=== PATIENT | male | born 1970 | race Caucasian/White ===

== ENCOUNTER 2022-02-05 19:19 | Inpatient (IN) | payer BC, MEDICAID ==
[~2022-02-05] VITALS: Ht 175.3 cm; Wt 74.5 kg
[2022-02-05] MEDS ORDERED: piperacillin/tazo 3.375gm/50ml 50 ML IV ONE (23:40)
[2022-02-05] MEDS ORDERED: ondansetron 4mg rapidly disintigrating tab PO ONE (23:40)
[2022-02-05] MEDS ORDERED: HYDROcodone/acetaminophen 10/325mg tab PO ONE (23:40)
[2022-02-05] MEDS ORDERED: iohexol 300mg/ml 100ml inj. ONE (23:54)
[2022-02-06] VITALS (19 sets, daily range): BP systolic 100–131; BP diastolic 57–84
[2022-02-06 00:35] LABS: BASOPHILS # (AUTO) 0.1 X10'3 (0-0.2); BASOPHILS % (AUTO) 0.4 % (0-1); EOSINOPHILS # (AUTO) 0.1 X10'3 (0-0.9); EOSINOPHILS % (AUTO) 0.6 % (0-6); HEMATOCRIT 40.6 % (42.0-52.0); HEMOGLOBIN 13.8 g/dl (14.0-17.9); LYMPHOCYTES # (AUTO) 1.8 X10'3 (1.1-4.8); LYMPHOCYTES % (AUTO) 11.5 % (21-51); MEAN CORPUSCULAR HEMOGLOBIN 30.2 PG (27.0-31.0); MEAN CORPUSCULAR HGB CONC 34.1 g/dL (33.0-36.5); MEAN CORPUSCULAR VOLUME 88.7 FL (78-98); MEAN PLATELET VOLUME 6.6 FL (7.4-10.4); MONOCYTES # (AUTO) 1.9 X10'3 (0-0.9); MONOCYTES % (AUTO) 11.9 % (2-12); NEUTROPHILS # (AUTO) 11.9 X10'3 (1.8-7.7); NEUTROPHILS % (AUTO) 75.6 % (42-75); PLATELET COUNT 413 X10'3 (140-440); RED BLOOD COUNT 4.58 X10'6 (4.70-6.10); WHITE BLOOD COUNT 15.8 X10'3 (4.5-11.0)
[2022-02-06 00:49] LABS: ALANINE AMINOTRANSFERASE 18 U/L (12-78); ALBUMIN 3.6 G/DL (3.4-5.0); ALBUMIN/GLOBULIN RATIO 0.9 (1.1-1.5); ALKALINE PHOSPHATASE 98 IU/L (46-116); ANION GAP 7 (8-16); ASPARTATE AMINO TRANSFERASE 17 U/L (10-37); BILIRUBIN,TOTAL 0.5 MG/DL (0.1-1.0); BLOOD UREA NITROGEN 12 MG/DL (7-18); BUN/CREATININE RATIO 11.8 (5.4-32.0); CALCIUM 9.2 MG/DL (8.5-10.1); CHLORIDE 101 MMOL/L (99-107); CREATININE 1.02 MG/DL (0.60-1.10); GLUCOSE 114 MG/DL (70-104); POTASSIUM 3.5 MMOL/L (3.5-5.1); SODIUM 139 MMOL/L (135-145); TOTAL CARBON DIOXIDE 30.9 MMOL/L (24-32); TOTAL PROTEIN 7.5 G/DL (6.4-8.2); eGFR 76 ML/MIN
[2022-02-06] MEDS ORDERED: bisacodyl 10mg suppository rectal RC PRN (02:10)
[2022-02-06] MEDS ORDERED: potassium Cl 40MEQ/1/2NS 520ml 520 ML IV PRN (02:10)
[2022-02-06] MEDS ORDERED: magnesium 4gm in 100ml NS 100 ML IV PRN (02:10)
[2022-02-06] MEDS ORDERED: ondansetron/PF 4mg/2ml inj IV PRN ×2 (02:10→13:45)
[2022-02-06] MEDS ORDERED: morphine 2 MG/ML inj. syringe IV PRN ×3 (02:10→13:45)
[2022-02-06] MEDS ORDERED: magnesium Cl slow-release 64mg tablet PO PRN (02:10)
[2022-02-06] MEDS ORDERED: potassium Cl 20 mEq SR tablet PO PRN ×2 (02:10)
[2022-02-06] MEDS ORDERED: magnesium hydroxide 30ml (MOM) UD suspension PO PRN (02:10)
[2022-02-06] MEDS ORDERED: acetaminophen 325mg tablet PO PRN (02:10)
[2022-02-06] MEDS: normal saline 1000ml 1,000 ML IV SCH ×3 (02:47→22:21)
[2022-02-06] MEDS: HYDROcodone/acetaminophen 5mg/325mg tablet PO PRN (07:37)
[2022-02-06] MEDS: heparin, porcine 5000 units/ml vial SQ SCH ×2 (07:38→22:17)
[2022-02-06] MEDS: piperacillin/tazo 3.375gm/50ml 50 ML IV SCH ×2 (07:38→17:18)
[2022-02-06] MEDS ORDERED: LIDOCAINE 1%/EPI 1:100,000 inj. 10 ML multi-dose vial ONE (13:29)
[2022-02-06] MEDS ORDERED: dibucaine ointment 28gm RC ONE (13:29)
[2022-02-06] MEDS ORDERED: proCHLORperazine 10 MG/2 ml inj IV PRN (13:45)
[2022-02-06] MEDS ORDERED: morphine 4 MG/ML inj SYRINge IV PRN (13:45)
[2022-02-06] MEDS ORDERED: ringers solution, lacted 1,000 ML IV SCH (13:45)
[2022-02-06] MEDS ORDERED: sevoflurane 250ml liquid IH ONE (13:45)
[2022-02-06] MEDS ORDERED: meperidine/PF 25mg/ml syringe IV PRN ×3 (13:45)
[2022-02-06] MEDS ORDERED: FENTANYL CITRATE/PF 50 MCG/1 ML VIAL ONE ×2 (13:47→13:48)
[2022-02-06] MEDS ORDERED: midazolam 1 mg/ML 2ml injection ONE (13:48)
[2022-02-06] MEDS ORDERED: ketamine 50mg/5ml syringe ONE (13:58)
[2022-02-06] MEDS ORDERED: dexamethasone sod phosphate 4mg/ml inj. ONE (14:00)
[2022-02-06] MEDS ORDERED: LIDOcaine 2% (20mg/ml) 5ml vial ONE (14:00)
[2022-02-06] MEDS ORDERED: ondansetron/PF 4mg/2ml inj ONE (14:00)
[2022-02-06] MEDS ORDERED: propofol inj 20 ML IV ONE (14:00)
[2022-02-06] MEDS ORDERED: acetaminophen 1,000mg/100ml IV 100 ML IV ONE (14:22)
--- NOTE | 2022-02-06 14:22 | NUR ---
Received from OR via HOSPITAL BED, accompanied by Anesthesiologist DR SALEEM and report given by Anesthesiolgist. PT PRESENTS WITH PIV 20G LEFT AC, ABD DRESSING ON PERIRECTAL AREA, SCANT BLOOD. VSS. Addendum: 02/06/22 at 1445 by Monik Laurent RN RN Amended: Links added.
--- NOTE | 2022-02-06 16:12 | NUR ---
Report called to receiving nurse ANDT RN Transferred via [facility] TO ROOM 360A W/ FAMILY. BED IN LOW LOCKED POSITION WITH CALL LIGHT IN REACH, PT HOOKED UP TO VITAL MACHINE. PT'S CHART TAKEN TO NURSES STATION. ON PT Belongings BAG TO ROOM 360A. Special Issues communicated to receiving nurse. Addendum: 02/06/22 at 1619 by Monik Laurent RN RN Amended: Links added.
--- NOTE | 2022-02-06 17:03 | NUR ---
promotional table spacer Page Accepted promotional table spacer Message: LEANDRO BERGER RM 297A CAN THIS PATIENT HAVE A DIET ORDER? JUST ARRIVED FROM [facility] WITH NPO FROM YESTERDAY THANK YOU ROBERT Devries
[2022-02-06] MEDS: HYDROcodone/acetaminophen 10/325mg tab PO PRN ×2 (17:17→22:21)
--- NOTE | 2022-02-06 18:40 | NUR ---
Patient in room [facility] 360. I have received report from Triston KAPADIA and had the opportunity to ask questions and assume patient care.
[2022-02-07] MEDS: piperacillin/tazo 3.375gm/50ml 50 ML IV SCH ×4 (00:24→23:41)
[2022-02-07 02:00] VITALS: BP 109/75
[2022-02-07] MEDS: HYDROcodone/acetaminophen 5mg/325mg tablet PO PRN (05:17)
[2022-02-07 06:00] VITALS: BP 111/68
--- NOTE | 2022-02-07 06:30 | NUR ---
Problems reprioritized. Patient report given, questions answered & plan of care reviewed with Triston KAPADIA.
[2022-02-07 07:00] LABS: BASOPHILS % (AUTO) 0.2 % (0-1); EOSINOPHILS % (AUTO) 0.2 % (0-6); HEMATOCRIT 39.2 % (42.0-52.0); HEMOGLOBIN 12.9 g/dl (14.0-17.9); LYMPHOCYTES # (AUTO) 1.6 X10'3 (1.1-4.8); LYMPHOCYTES % (AUTO) 10.4 % (21-51); MEAN CORPUSCULAR HGB CONC 32.9 g/dL (33.0-36.5); MEAN CORPUSCULAR VOLUME 91.1 FL (78-98); MEAN PLATELET VOLUME 6.8 FL (7.4-10.4); MONOCYTES # (AUTO) 2.1 X10'3 (0-0.9); MONOCYTES % (AUTO) 13.3 % (2-12); NEUTROPHILS # (AUTO) 12.1 X10'3 (1.8-7.7); NEUTROPHILS % (AUTO) 75.9 % (42-75); PLATELET COUNT 377 X10'3 (140-440); RED CELL DISTRIBUTION WIDTH 13.2 % (11.5-14.5); WHITE BLOOD COUNT 15.9 X10'3 (4.5-11.0)
[2022-02-07 07:11] LABS: ANION GAP 7 (8-16); BILIRUBIN,TOTAL 0.6 MG/DL (0.1-1.0); BLOOD UREA NITROGEN 10 MG/DL (7-18); BUN/CREATININE RATIO 10.1 (5.4-32.0); CALCIUM 9.1 MG/DL (8.5-10.1); CHLORIDE 101 MMOL/L (99-107); CREATININE 0.99 MG/DL (0.60-1.10); GLUCOSE 105 MG/DL (70-104); MAGNESIUM 1.9 MG/DL (1.5-2.4); PHOSPHORUS 3.4 MG/DL (2.3-4.5); POTASSIUM 3.7 MMOL/L (3.5-5.1); SODIUM 137 MMOL/L (135-145); TOTAL CARBON DIOXIDE 28.7 MMOL/L (24-32); eGFR 79 ML/MIN
[2022-02-07 07:12] LABS: ALANINE AMINOTRANSFERASE 15 U/L (12-78); ALBUMIN/GLOBULIN RATIO 0.8 (1.1-1.5); ALKALINE PHOSPHATASE 84 IU/L (46-116); ASPARTATE AMINO TRANSFERASE 16 U/L (10-37)
[2022-02-07 07:39] LABS: PLATELET ESTIMATE NORMAL; TOTAL CELLS COUNTED 100
[2022-02-07] MEDS: HYDROcodone/acetaminophen 10/325mg tab PO PRN (08:22)
[2022-02-07] MEDS: heparin, porcine 5000 units/ml vial SQ SCH ×2 (08:22→20:56)
[2022-02-07] MEDS: normal saline 1000ml 1,000 ML IV SCH ×2 (08:27→20:59)
[2022-02-07 10:00] VITALS: BP 123/81
--- NOTE | 2022-02-07 14:19 | NUR ---
Message: LEANDRO BERGER RM 360A CHARLES OK WITH DISCHARGE. CAN YOU PLEASE PUT IN DC ORDERS THANK YOU ROBERT KAPADIA
[2022-02-07] MEDS ORDERED: AMOX-580 PO ×2 (14:27)
[2022-02-07] MEDS ORDERED: LACT1CAP26 PO (14:27)
[2022-02-07] MEDS ORDERED: HYDR-3965 PO ×2 (14:28)
--- NOTE | 2022-02-07 15:32 | NUR ---
Pt had temp of 99.8, increased to currently 100.7. Dr Glass requested to notify Chiara to make desicion. Dr Guadarrama stated he is going home on antibiotics and he is safe to go home. To educate him if fever persists tomorrow, or is beyond 101.[address] Glass at his office.
--- NOTE | 2022-02-07 15:32 | NUR ---
Message: Casie Rubio- rm 896A. Please call re discharge thank you Triston KAPADIA
--- NOTE | 2022-02-07 15:41 | NUR ---
promotional table spacer Page Accepted promotional table spacer Message: Casie Rubio- rm 360A.Patient is stating he is "really uncomfortable with discharge with all he's been through and now the rising temp". requesting to stay another night thank you Triston KAPADIA
[2022-02-07 18:00] VITALS: BP 118/74
--- NOTE | 2022-02-07 18:29 | NUR ---
Patient in room [facility] 360. I have received report from Triston KAPADIA and had the opportunity to ask questions and assume patient care.
--- NOTE | 2022-02-07 20:35 | NUR ---
Patient febrile at 102. New order for blood cultures to be drawn. First set from yesterday shows no growth thus far. Patient concerned that he feels discomfort coming from the vamshi anal area up through crotch on the left side. Area look reddended and swollen. Tylenol given for fever after the cultures were drawn.
[2022-02-07 22:00] VITALS: BP 112/68
[2022-02-08] MEDS: acetaminophen 325mg tablet PO PRN ×2 (00:11→08:53)
[2022-02-08] MEDS: normal saline 1000ml 1,000 ML IV SCH ×2 (04:27→13:57)
--- NOTE | 2022-02-08 06:40 | NUR ---
Problems reprioritized. Patient report given, questions answered & plan of care reviewed with Shabnam KAPADIA.
[2022-02-08 07:00] VITALS: BP 126/72
[2022-02-08 07:15] LABS: BASOPHILS # (AUTO) 0.1 X10'3 (0-0.2); BASOPHILS % (AUTO) 0.4 % (0-1); EOSINOPHILS # (AUTO) 0.1 X10'3 (0-0.9); HEMATOCRIT 36.1 % (42.0-52.0); HEMOGLOBIN 12.3 g/dl (14.0-17.9); LYMPHOCYTES # (AUTO) 1.5 X10'3 (1.1-4.8); LYMPHOCYTES % (AUTO) 11.7 % (21-51); MEAN CORPUSCULAR HEMOGLOBIN 30.5 PG (27.0-31.0); MEAN CORPUSCULAR VOLUME 89.7 FL (78-98); MEAN PLATELET VOLUME 6.9 FL (7.4-10.4); MONOCYTES # (AUTO) 1.6 X10'3 (0-0.9); MONOCYTES % (AUTO) 12.6 % (2-12); NEUTROPHILS # (AUTO) 9.5 X10'3 (1.8-7.7); NEUTROPHILS % (AUTO) 74.3 % (42-75); PLATELET COUNT 343 X10'3 (140-440); RED BLOOD COUNT 4.02 X10'6 (4.70-6.10); RED CELL DISTRIBUTION WIDTH 13.2 % (11.5-14.5); WHITE BLOOD COUNT 12.7 X10'3 (4.5-11.0)
[2022-02-08 07:37] LABS: ALANINE AMINOTRANSFERASE 14 U/L (12-78); ALBUMIN 2.5 G/DL (3.4-5.0); ALBUMIN/GLOBULIN RATIO 0.6 (1.1-1.5); ALKALINE PHOSPHATASE 75 IU/L (46-116); ANION GAP 5 (8-16); ASPARTATE AMINO TRANSFERASE 19 U/L (10-37); BILIRUBIN,TOTAL 0.7 MG/DL (0.1-1.0); BLOOD UREA NITROGEN 8 MG/DL (7-18); CALCIUM 8.7 MG/DL (8.5-10.1); CHLORIDE 102 MMOL/L (99-107); GLUCOSE 103 MG/DL (70-104); MAGNESIUM 1.8 MG/DL (1.5-2.4); PHOSPHORUS 2.7 MG/DL (2.3-4.5); POTASSIUM 3.4 MMOL/L (3.5-5.1); SODIUM 136 MMOL/L (135-145); TOTAL CARBON DIOXIDE 28.8 MMOL/L (24-32); TOTAL PROTEIN 6.4 G/DL (6.4-8.2); eGFR 78 ML/MIN
[2022-02-08] MEDS: heparin, porcine 5000 units/ml vial SQ SCH ×2 (08:53→20:00)
[2022-02-08] MEDS: piperacillin/tazo 3.375gm/50ml 50 ML IV SCH ×2 (08:54→17:15)
[2022-02-08 11:00] VITALS: BP 113/66
[2022-02-08] MEDS: vancomycin/NS 1 GM ADD-VANTAGE 250 ML IV SCH (13:52)
[2022-02-08 18:00] VITALS: BP 130/81
--- NOTE | 2022-02-08 18:12 | NUR ---
Problems reprioritized. Patient report given, questions answered & plan of care reviewed with KANG Vogt.
[2022-02-08] MEDS: HYDROcodone/acetaminophen 10/325mg tab PO PRN (19:53)
[2022-02-08 22:00] VITALS: BP 118/68
[2022-02-09] MEDS: normal saline 1000ml 1,000 ML IV SCH ×3 (00:06→20:13)
[2022-02-09] MEDS: vancomycin/NS 1 GM ADD-VANTAGE 250 ML IV SCH ×2 (00:06→12:23)
[2022-02-09] MEDS: piperacillin/tazo 3.375gm/50ml 50 ML IV SCH ×3 (01:36→16:23)
[2022-02-09 04:29] LABS: ALANINE AMINOTRANSFERASE 10 U/L (12-78); ALBUMIN 2.2 G/DL (3.4-5.0); ALBUMIN/GLOBULIN RATIO 0.6 (1.1-1.5); ALKALINE PHOSPHATASE 70 IU/L (46-116); ANION GAP 5 (8-16); ASPARTATE AMINO TRANSFERASE 16 U/L (10-37); BILIRUBIN,TOTAL 0.4 MG/DL (0.1-1.0); BLOOD UREA NITROGEN 6 MG/DL (7-18); BUN/CREATININE RATIO 6.6 (5.4-32.0); CALCIUM 8.4 MG/DL (8.5-10.1); CHLORIDE 105 MMOL/L (99-107); CREATININE 0.91 MG/DL (0.60-1.10); GLUCOSE 90 MG/DL (70-104); MAGNESIUM 1.8 MG/DL (1.5-2.4); PHOSPHORUS 2.7 MG/DL (2.3-4.5); POTASSIUM 3.7 MMOL/L (3.5-5.1); SODIUM 139 MMOL/L (135-145); TOTAL CARBON DIOXIDE 29.1 MMOL/L (24-32); TOTAL PROTEIN 6.1 G/DL (6.4-8.2); eGFR 87 ML/MIN
[2022-02-09 04:37] LABS: BASOPHILS % (AUTO) 0.3 % (0-1); EOSINOPHILS # (AUTO) 0.4 X10'3 (0-0.9); EOSINOPHILS % (AUTO) 3.3 % (0-6); HEMOGLOBIN 11.8 g/dl (14.0-17.9); LYMPHOCYTES # (AUTO) 1.5 X10'3 (1.1-4.8); LYMPHOCYTES % (AUTO) 11.8 % (21-51); MEAN CORPUSCULAR HEMOGLOBIN 30.4 PG (27.0-31.0); MEAN CORPUSCULAR HGB CONC 33.6 g/dL (33.0-36.5); MEAN CORPUSCULAR VOLUME 90.7 FL (78-98); MEAN PLATELET VOLUME 7.2 FL (7.4-10.4); MONOCYTES # (AUTO) 1.3 X10'3 (0-0.9); MONOCYTES % (AUTO) 10.7 % (2-12); NEUTROPHILS # (AUTO) 9.3 X10'3 (1.8-7.7); NEUTROPHILS % (AUTO) 73.9 % (42-75); PLATELET COUNT 334 X10'3 (140-440); RED BLOOD COUNT 3.86 X10'6 (4.70-6.10); RED CELL DISTRIBUTION WIDTH 13.1 % (11.5-14.5); WHITE BLOOD COUNT 12.6 X10'3 (4.5-11.0)
[2022-02-09] MEDS: HYDROcodone/acetaminophen 10/325mg tab PO PRN (05:58)
[2022-02-09 06:00] VITALS: BP 116/68
--- NOTE | 2022-02-09 06:35 | NUR ---
Problems reprioritized. Patient report given, questions answered & plan of care reviewed with LOIS KAPADIA. Addendum: 02/09/22 at 0635 by Torie Sears RN Amended: Links added.
[2022-02-09] MEDS: heparin, porcine 5000 units/ml vial SQ SCH ×2 (07:11→20:00)
[2022-02-09 10:00] VITALS: BP 111/70
[2022-02-09] MEDS: HYDROcodone/acetaminophen 5mg/325mg tablet PO PRN (10:16)
[2022-02-09 18:30] VITALS: BP 124/80
--- NOTE | 2022-02-09 18:35 | NUR ---
Problems reprioritized. Patient report given, questions answered & plan of care reviewed with zehra ring.
[2022-02-09] MEDS: lactobacillus rhamnosus 10,000 MMU CELLS/CAPSULE PO SCH (20:09)
[2022-02-09] MEDS: acetaminophen 325mg tablet PO PRN (20:10)
[2022-02-09 22:00] VITALS: BP 127/76
[2022-02-10] MEDS ORDERED: VANCOMYCIN LEVEL IV ONE (00:30)
[2022-02-10] MEDS: piperacillin/tazo 3.375gm/50ml 50 ML IV SCH ×3 (01:11→16:18)
[2022-02-10] MEDS: acetaminophen 325mg tablet PO PRN (04:20)
[2022-02-10 05:50] LABS: BASOPHILS # (AUTO) 0.1 X10'3 (0-0.2); BASOPHILS % (AUTO) 0.6 % (0-1); EOSINOPHILS # (AUTO) 0.4 X10'3 (0-0.9); EOSINOPHILS % (AUTO) 2.6 % (0-6); HEMATOCRIT 37.1 % (42.0-52.0); HEMOGLOBIN 12.5 g/dl (14.0-17.9); LYMPHOCYTES % (AUTO) 11.9 % (21-51); MEAN CORPUSCULAR HEMOGLOBIN 30.7 PG (27.0-31.0); MEAN CORPUSCULAR HGB CONC 33.8 g/dL (33.0-36.5); MEAN CORPUSCULAR VOLUME 90.9 FL (78-98); MEAN PLATELET VOLUME 7.2 FL (7.4-10.4); MONOCYTES % (AUTO) 12.2 % (2-12); NEUTROPHILS # (AUTO) 12.2 X10'3 (1.8-7.7); NEUTROPHILS % (AUTO) 72.7 % (42-75); PLATELET COUNT 364 X10'3 (140-440); RED BLOOD COUNT 4.08 X10'6 (4.70-6.10); RED CELL DISTRIBUTION WIDTH 13.1 % (11.5-14.5); WHITE BLOOD COUNT 16.8 X10'3 (4.5-11.0)
[2022-02-10] MEDS: normal saline 1000ml 1,000 ML IV SCH ×2 (06:10→10:49)
[2022-02-10 06:29] LABS: ALANINE AMINOTRANSFERASE 18 U/L (12-78); ALBUMIN 2.5 G/DL (3.4-5.0); ALBUMIN/GLOBULIN RATIO 0.6 (1.1-1.5); ALKALINE PHOSPHATASE 81 IU/L (46-116); ANION GAP 12 (8-16); ASPARTATE AMINO TRANSFERASE 14 U/L (10-37); BILIRUBIN,TOTAL 0.4 MG/DL (0.1-1.0); BLOOD UREA NITROGEN 4 MG/DL (7-18); BUN/CREATININE RATIO 4.3 (5.4-32.0); CHLORIDE 103 MMOL/L (99-107); CREATININE 0.92 MG/DL (0.60-1.10); GLUCOSE 105 MG/DL (70-104); MAGNESIUM 1.8 MG/DL (1.5-2.4); PHOSPHORUS 3.2 MG/DL (2.3-4.5); SODIUM 140 MMOL/L (135-145); TOTAL CARBON DIOXIDE 25.4 MMOL/L (24-32); TOTAL PROTEIN 6.9 G/DL (6.4-8.2); eGFR 86 ML/MIN
[2022-02-10 06:32] LABS: POTASSIUM 2.8 MMOL/L (3.5-5.1)
--- NOTE | 2022-02-10 06:34 | NUR ---
Patient in room [facility] 360. I have received report from zehra rn and had the opportunity to ask questions and assume patient care.
[2022-02-10] MEDS ORDERED: magnesium Cl slow-release 64mg tablet PO PRN (06:35)
[2022-02-10] MEDS ORDERED: magnesium 4gm in 100ml NS 100 ML IV PRN (06:35)
[2022-02-10] MEDS ORDERED: potassium Cl 40MEQ/1/2NS 520ml 520 ML IV PRN (06:35)
[2022-02-10] MEDS ORDERED: potassium Cl 20 mEq SR tablet PO PRN (06:35)
[2022-02-10 06:40] VITALS: BP 97/63
[2022-02-10] MEDS: lactobacillus rhamnosus 10,000 MMU CELLS/CAPSULE PO SCH (08:00)
[2022-02-10] MEDS: heparin, porcine 5000 units/ml vial SQ SCH ×2 (08:00→20:00)
[2022-02-10] MEDS: potassium Cl 20 mEq SR tablet PO PRN ×3 (08:01→21:03)
[2022-02-10] MEDS: K and/or MAG REPLACEMENT MC SCH ×2 (08:06→20:00)
[2022-02-10 10:00] VITALS: BP 124/83
[2022-02-10] MEDS ORDERED: ondansetron/PF 4mg/2ml inj IV PRN (10:35)
[2022-02-10] MEDS: doxycycline inj 100 MG in normal saline 100ml IV soln 100 ML IV SCH ×2 (10:45→21:02)
[2022-02-10 13:49] LABS: BASOPHILS # (AUTO) 0.1 X10'3 (0-0.2); BASOPHILS % (AUTO) 0.4 % (0-1); EOSINOPHILS # (AUTO) 0.3 X10'3 (0-0.9); EOSINOPHILS % (AUTO) 2.2 % (0-6); HEMATOCRIT 36.8 % (42.0-52.0); LYMPHOCYTES # (AUTO) 1.4 X10'3 (1.1-4.8); LYMPHOCYTES % (AUTO) 9.5 % (21-51); MEAN CORPUSCULAR HEMOGLOBIN 29.6 PG (27.0-31.0); MEAN CORPUSCULAR HGB CONC 32.6 g/dL (33.0-36.5); MEAN CORPUSCULAR VOLUME 90.7 FL (78-98); MEAN PLATELET VOLUME 6.7 FL (7.4-10.4); MONOCYTES # (AUTO) 1.5 X10'3 (0-0.9); MONOCYTES % (AUTO) 10.2 % (2-12); NEUTROPHILS # (AUTO) 11.2 X10'3 (1.8-7.7); NEUTROPHILS % (AUTO) 77.7 % (42-75); PLATELET COUNT 395 X10'3 (140-440); RED BLOOD COUNT 4.06 X10'6 (4.70-6.10); RED CELL DISTRIBUTION WIDTH 13.2 % (11.5-14.5); WHITE BLOOD COUNT 14.4 X10'3 (4.5-11.0)
[2022-02-10 18:00] VITALS: BP 121/82
--- NOTE | 2022-02-10 18:33 | NUR ---
Problems reprioritized. Patient report given, questions answered & plan of care reviewed with YOAV KAPADIA.
--- NOTE | 2022-02-10 20:00 | NUR ---
Patient refused Heparin injection. Explained risks and that his platelet count is 395, which could indicated risk for clots. Patient and spouse aware.
[2022-02-10] MEDS: HYDROcodone/acetaminophen 10/325mg tab PO PRN (21:02)
[2022-02-10] MEDS: diatr meglu/diatrizoate 30ml oral sol.-(3 dose) bottle PO SCH (21:04)
[2022-02-10 22:00] VITALS: BP 113/76
[2022-02-11] MEDS: piperacillin/tazo 3.375gm/50ml 50 ML IV SCH ×3 (00:08→16:37)
[2022-02-11] MEDS: normal saline 1000ml 1,000 ML IV SCH ×3 (00:08→22:10)
[2022-02-11] MEDS: HYDROcodone/acetaminophen 10/325mg tab PO PRN ×2 (01:24→21:48)
[2022-02-11 06:00] VITALS: BP 121/76
[2022-02-11 06:07] LABS: BASOPHILS # (AUTO) 0.1 X10'3 (0-0.2); BASOPHILS % (AUTO) 0.7 % (0-1); EOSINOPHILS # (AUTO) 0.6 X10'3 (0-0.9); EOSINOPHILS % (AUTO) 4.9 % (0-6); HEMATOCRIT 34.5 % (42.0-52.0); HEMOGLOBIN 11.5 g/dl (14.0-17.9); LYMPHOCYTES # (AUTO) 2.3 X10'3 (1.1-4.8); LYMPHOCYTES % (AUTO) 17.5 % (21-51); MEAN CORPUSCULAR HEMOGLOBIN 30.2 PG (27.0-31.0); MEAN CORPUSCULAR HGB CONC 33.2 g/dL (33.0-36.5); MEAN PLATELET VOLUME 6.7 FL (7.4-10.4); MONOCYTES # (AUTO) 1.7 X10'3 (0-0.9); MONOCYTES % (AUTO) 13.1 % (2-12); NEUTROPHILS # (AUTO) 8.2 X10'3 (1.8-7.7); NEUTROPHILS % (AUTO) 63.8 % (42-75); PLATELET COUNT 378 X10'3 (140-440); RED CELL DISTRIBUTION WIDTH 13.5 % (11.5-14.5); WHITE BLOOD COUNT 12.9 X10'3 (4.5-11.0)
[2022-02-11 06:21] LABS: ALANINE AMINOTRANSFERASE 26 U/L (12-78); ALBUMIN 2.2 G/DL (3.4-5.0); ALBUMIN/GLOBULIN RATIO 0.6 (1.1-1.5); ALKALINE PHOSPHATASE 73 IU/L (46-116); ANION GAP 5 (8-16); ASPARTATE AMINO TRANSFERASE 19 U/L (10-37); BILIRUBIN,TOTAL 0.3 MG/DL (0.1-1.0); BLOOD UREA NITROGEN 4 MG/DL (7-18); BUN/CREATININE RATIO 4.4 (5.4-32.0); CHLORIDE 108 MMOL/L (99-107); CREATININE 0.91 MG/DL (0.60-1.10); GLUCOSE 97 MG/DL (70-104); MAGNESIUM 1.8 MG/DL (1.5-2.4); PHOSPHORUS 4.1 MG/DL (2.3-4.5); POTASSIUM 4.1 MMOL/L (3.5-5.1); SODIUM 142 MMOL/L (135-145); TOTAL CARBON DIOXIDE 29.1 MMOL/L (24-32); TOTAL PROTEIN 6.1 G/DL (6.4-8.2); eGFR 87 ML/MIN
--- NOTE | 2022-02-11 06:24 | NUR ---
Problems reprioritized. Patient report given, questions answered & plan of care reviewed with Anais KAPADIA.
--- NOTE | 2022-02-11 06:44 | NUR ---
Patient in room [facility] 360. I have received report from ISABELLA KAPADIA and had the opportunity to ask questions and assume patient care.
[2022-02-11] MEDS ORDERED: iohexol 300mg/ml 100ml inj. ONE (07:54)
[2022-02-11] MEDS: lactobacillus rhamnosus 10,000 MMU CELLS/CAPSULE PO SCH (08:00)
[2022-02-11] MEDS: heparin, porcine 5000 units/ml vial SQ SCH ×2 (08:00→20:00)
[2022-02-11] MEDS: K and/or MAG REPLACEMENT MC SCH ×2 (08:00→19:55)
--- NOTE | 2022-02-11 08:44 | NUR ---
PER PHARMACIST JUDI, IVS MEDS ARE NOT COMPATIBLE, SHE STATED TO STARTED THE Q8HR FIRST THEN START THE Q12 HR NEXT. SO ZOSYN WILL GO FIRST THEN OTHER IV MEDS.
[2022-02-11] MEDS: diatr meglu/diatrizoate 30ml oral sol.-(3 dose) bottle PO SCH ×2 (09:23→10:59)
[2022-02-11 10:54] VITALS: BP 112/74
[2022-02-11] MEDS: HYDROcodone/acetaminophen 5mg/325mg tablet PO PRN ×2 (11:00→16:37)
--- NOTE | 2022-02-11 13:36 | NUR ---
Initial: Pt admit for perirectal abscess, currently POD # 5 s/p I&D of abscess. Pt on a regular diet with fluctuating PO intake, initially documented with 25-50% PO intake however up to average 92% PO intake of six most recent meals meeting estimated nutrient needs. LBM 02/10, documented with diarrhea. C.diff testing pending. No nutrition intervention implemented at this time. Will continue to follow. Recommendations: 1) Consider diet change to low fiber in view of h/o UC 2) Bowel care per physician 3) Weekly scaled weights Addendum: 02/11/22 at [address] Amended: Links added.
[2022-02-11] MEDS: doxycycline inj 100 MG in normal saline 100ml IV soln 100 ML IV SCH ×2 (13:50→20:04)
[2022-02-11 18:30] VITALS: BP 107/70
--- NOTE | 2022-02-11 18:30 | NUR ---
Patient in room [facility] 360. I have received report from KANG Bliss and had the opportunity to ask questions and assume patient care. Addendum: 02/11/22 at 1953 by Jasbir Trujillo RN Amended: Links added.
[2022-02-11 22:30] VITALS: BP 109/71
[2022-02-12] MEDS: piperacillin/tazo 3.375gm/50ml 50 ML IV SCH ×3 (00:25→16:47)
[2022-02-12] MEDS: normal saline 1000ml 1,000 ML IV SCH ×2 (01:42→18:10)
[2022-02-12] MEDS: HYDROcodone/acetaminophen 10/325mg tab PO PRN ×3 (01:42→17:59)
--- NOTE | 2022-02-12 01:45 | NUR ---
WASHED WITH BEV BOTTLE AND WARM WATER GENTLY X2 BOTTLES. UNABLE TO USE SITZ BATH. Addendum: 02/12/22 at 0206 by Jasbir Trujillo RN Amended: Links added.
[2022-02-12 06:00] VITALS: BP 113/71
--- NOTE | 2022-02-12 06:04 | NUR ---
Problems reprioritized. Patient report given, questions answered & plan of care reviewed with KANG Bliss. Addendum: 02/12/22 at 0605 by Jasbir Trujillo RN Amended: Links added.
--- NOTE | 2022-02-12 06:27 | NUR ---
Pt states pain is better now and declines pain medication until needed. Addendum: 02/12/22 at 1827 by Jasbir Trujillo RN Amended: Links added.
--- NOTE | 2022-02-12 06:49 | NUR ---
Patient in room [facility]. I have received report from JAMES KAPADIA and had the opportunity to ask questions and assume patient care.
[2022-02-12] MEDS: heparin, porcine 5000 units/ml vial SQ SCH ×2 (08:00→19:52)
[2022-02-12] MEDS: K and/or MAG REPLACEMENT MC SCH ×2 (08:00→19:38)
[2022-02-12 08:53] LABS: C DIFF SPECIMEN=DIARRHEA? ACCEPTABLE; C DIFFICILE TOXINS A&B NEGATIVE (Neg)
[2022-02-12] MEDS: lactobacillus rhamnosus 10,000 MMU CELLS/CAPSULE PO SCH (08:54)
[2022-02-12] MEDS: methylnaltrexone br 12mg/0.6ml inj***SubQ only SQ SCH (08:55)
--- NOTE | 2022-02-12 09:01 | NUR ---
PT HAS DIARRHEA HE DOES NOT NEED THE RELISTOR FOR CONSTIPATION. I WILL TALK TO THE MD AND LET HER KNOW.
[2022-02-12 11:01] LABS: BASOPHILS # (AUTO) 0.1 X10'3 (0-0.2); BASOPHILS % (AUTO) 0.7 % (0-1); EOSINOPHILS # (AUTO) 0.4 X10'3 (0-0.9); HEMATOCRIT 38.2 % (42.0-52.0); HEMOGLOBIN 12.3 g/dl (14.0-17.9); LYMPHOCYTES # (AUTO) 1.5 X10'3 (1.1-4.8); LYMPHOCYTES % (AUTO) 11.6 % (21-51); MEAN CORPUSCULAR HEMOGLOBIN 29.8 PG (27.0-31.0); MEAN CORPUSCULAR HGB CONC 32.2 g/dL (33.0-36.5); MEAN CORPUSCULAR VOLUME 92.4 FL (78-98); MEAN PLATELET VOLUME 6.2 FL (7.4-10.4); MONOCYTES # (AUTO) 1.8 X10'3 (0-0.9); MONOCYTES % (AUTO) 14.1 % (2-12); NEUTROPHILS # (AUTO) 9.2 X10'3 (1.8-7.7); NEUTROPHILS % (AUTO) 70.6 % (42-75); PLATELET COUNT 462 X10'3 (140-440); RED BLOOD COUNT 4.13 X10'6 (4.70-6.10); RED CELL DISTRIBUTION WIDTH 13.6 % (11.5-14.5)
--- NOTE | 2022-02-12 11:16 | NUR ---
dr zafar talked to pt about his ct possible showing some constipation, she prescribed Relistor but pt denied any abd pain, constipation symptoms and on physical exam dr stated it doesn't seem like he doesn't have constipation of bowel. she wanted me to put Relistor on hold and will have the surgeon review the ct results and consult.
[2022-02-12 11:18] LABS: ALANINE AMINOTRANSFERASE 29 U/L (12-78); ALBUMIN 2.4 G/DL (3.4-5.0); ALBUMIN/GLOBULIN RATIO 0.6 (1.1-1.5); ALKALINE PHOSPHATASE 77 IU/L (46-116); ANION GAP 8 (8-16); ASPARTATE AMINO TRANSFERASE 20 U/L (10-37); BILIRUBIN,TOTAL 0.3 MG/DL (0.1-1.0); BLOOD UREA NITROGEN 5 MG/DL (7-18); BUN/CREATININE RATIO 5.4 (5.4-32.0); CALCIUM 9.1 MG/DL (8.5-10.1); CHLORIDE 105 MMOL/L (99-107); CREATININE 0.93 MG/DL (0.60-1.10); GLUCOSE 104 MG/DL (70-104); POTASSIUM 3.8 MMOL/L (3.5-5.1); SODIUM 139 MMOL/L (135-145); TOTAL CARBON DIOXIDE 26.5 MMOL/L (24-32); TOTAL PROTEIN 6.7 G/DL (6.4-8.2); eGFR 85 ML/MIN
[2022-02-12 11:23] VITALS: BP_SYST 120; BP_SYST 155; BP_DIAS 74; BP_DIAS 85
[2022-02-12] MEDS: doxycycline inj 100 MG in normal saline 100ml IV soln 100 ML IV SCH ×2 (12:46→22:23)
--- NOTE | 2022-02-12 13:50 | NUR ---
per dr Glass he stated that pt can resume his regular diet he wants to come talk to him.
[2022-02-12 18:00] VITALS: BP 132/87
--- NOTE | 2022-02-12 18:30 | NUR ---
Patient in room [facility] 360. I have received report from KANG Bliss and had the opportunity to ask questions and assume patient care.
--- NOTE | 2022-02-12 18:36 | NUR ---
Problems reprioritized. Patient report given, questions answered & plan of care reviewed with blanca ring.
[2022-02-12] MEDS: NYSTATIN CREAM - 30GM TUBE TP SCH (19:44)
[2022-02-12 22:00] VITALS: BP 117/80
[2022-02-12] MEDS: HYDROcodone/acetaminophen 5mg/325mg tablet PO PRN (22:09)
[2022-02-13] MEDS: piperacillin/tazo 3.375gm/50ml 50 ML IV SCH ×4 (01:20→23:31)
[2022-02-13] MEDS: normal saline 1000ml 1,000 ML IV SCH ×3 (05:18→23:31)
[2022-02-13] MEDS: HYDROcodone/acetaminophen 5mg/325mg tablet PO PRN ×3 (05:19→15:38)
--- NOTE | 2022-02-13 06:15 | NUR ---
Problems reprioritized. Patient report given, questions answered & plan of care reviewed with KANG Goldstein.
[2022-02-13 07:09] VITALS: BP 109/62
[2022-02-13] MEDS: K and/or MAG REPLACEMENT MC SCH ×2 (08:00→20:00)
[2022-02-13] MEDS: methylnaltrexone br 12mg/0.6ml inj***SubQ only SQ SCH (08:00)
[2022-02-13] MEDS: lactobacillus rhamnosus 10,000 MMU CELLS/CAPSULE PO SCH (08:35)
[2022-02-13] MEDS: heparin, porcine 5000 units/ml vial SQ SCH ×2 (08:35→20:00)
[2022-02-13] MEDS: NYSTATIN CREAM - 30GM TUBE TP SCH ×2 (08:37→21:21)
[2022-02-13] MEDS: DOXYCYCLINE 100MG CAPSULE PO SCH ×2 (08:37→17:07)
[2022-02-13 10:00] VITALS: BP 109/60
[2022-02-13 18:00] VITALS: BP 115/76
--- NOTE | 2022-02-13 18:22 | NUR ---
Patient in room [facility]. I have received report from ROBERT KAPADIA and had the opportunity to ask questions and assume patient care.
[2022-02-13 20:47] LABS: BASOPHILS # (AUTO) 0.1 X10'3 (0-0.2); BASOPHILS % (AUTO) 0.6 % (0-1); EOSINOPHILS # (AUTO) 0.3 X10'3 (0-0.9); EOSINOPHILS % (AUTO) 2.4 % (0-6); HEMATOCRIT 36.6 % (42.0-52.0); HEMOGLOBIN 12.3 g/dl (14.0-17.9); LYMPHOCYTES # (AUTO) 1.8 X10'3 (1.1-4.8); LYMPHOCYTES % (AUTO) 13.8 % (21-51); MEAN CORPUSCULAR HEMOGLOBIN 30.3 PG (27.0-31.0); MEAN CORPUSCULAR HGB CONC 33.6 g/dL (33.0-36.5); MEAN PLATELET VOLUME 6.1 FL (7.4-10.4); MONOCYTES # (AUTO) 1.9 X10'3 (0-0.9); MONOCYTES % (AUTO) 14.7 % (2-12); NEUTROPHILS # (AUTO) 8.9 X10'3 (1.8-7.7); NEUTROPHILS % (AUTO) 68.5 % (42-75); PLATELET COUNT 528 X10'3 (140-440); RED BLOOD COUNT 4.07 X10'6 (4.70-6.10); RED CELL DISTRIBUTION WIDTH 13.5 % (11.5-14.5)
[2022-02-13 21:05] LABS: ALANINE AMINOTRANSFERASE 37 U/L (12-78); ALBUMIN 2.5 G/DL (3.4-5.0); ALBUMIN/GLOBULIN RATIO 0.6 (1.1-1.5); ALKALINE PHOSPHATASE 76 IU/L (46-116); ANION GAP 9 (8-16); ASPARTATE AMINO TRANSFERASE 26 U/L (10-37); BILIRUBIN,TOTAL 0.2 MG/DL (0.1-1.0); BLOOD UREA NITROGEN 7 MG/DL (7-18); BUN/CREATININE RATIO 7.5 (5.4-32.0); CALCIUM 8.6 MG/DL (8.5-10.1); CHLORIDE 106 MMOL/L (99-107); CREATININE 0.93 MG/DL (0.60-1.10); GLUCOSE 109 MG/DL (70-104); POTASSIUM 3.5 MMOL/L (3.5-5.1); SODIUM 140 MMOL/L (135-145); TOTAL CARBON DIOXIDE 25.4 MMOL/L (24-32); TOTAL PROTEIN 6.8 G/DL (6.4-8.2); eGFR 85 ML/MIN
[2022-02-13 22:00] VITALS: BP 113/73
[2022-02-14] MEDS: HYDROcodone/acetaminophen 5mg/325mg tablet PO PRN ×2 (03:36→12:50)
--- NOTE | 2022-02-14 06:15 | NUR ---
Problems reprioritized. Patient report given, questions answered & plan of care reviewed with ROBERT KAPADIA.
[2022-02-14 06:38] VITALS: BP 107/69
[2022-02-14] MEDS: heparin, porcine 5000 units/ml vial SQ SCH (08:00)
[2022-02-14] MEDS: NYSTATIN CREAM - 30GM TUBE TP SCH (08:00)
[2022-02-14] MEDS: piperacillin/tazo 3.375gm/50ml 50 ML IV SCH (08:00)
[2022-02-14] MEDS: lactobacillus rhamnosus 10,000 MMU CELLS/CAPSULE PO SCH (08:00)
[2022-02-14] MEDS: methylnaltrexone br 12mg/0.6ml inj***SubQ only SQ SCH (08:00)
[2022-02-14] MEDS: K and/or MAG REPLACEMENT MC SCH (08:00)
[2022-02-14] MEDS: DOXYCYCLINE 100MG CAPSULE PO SCH (08:30)
[2022-02-14] MEDS: normal saline 1000ml 1,000 ML IV SCH (09:38)
[2022-02-14 10:54] VITALS: BP 112/61
[2022-02-14] MEDS ORDERED: DOXY-243 PO (12:54)
[2022-02-14] MEDS ORDERED: METR-159 PO (12:54)
[2022-02-14] MEDS ORDERED: ACET-1008 PO (12:54)
== END 2022-02-14 14:35 | disposition home or self-care (01) | DRG 349 ==
LOC: ER 19:21 → ED HOLD 02-06 02:12 → SUR 3N 02-06 16:22
PROVIDERS: ADMIT Internal Medicine; ATTEND Family Medicine
PROC: BW2G1ZZ Computerized Tomography (CT Scan) of Pelvic Region using Low Osmolar Contrast (ICD-10-PCS; 2022-02-05)
PROC: 0D9Q0ZZ Drainage of Anus, Open Approach (ICD-10-PCS; principal; 2022-02-06 13:45)
PROC: BW211ZZ Computerized Tomography (CT Scan) of Abdomen and Pelvis using Low Osmolar Contrast (ICD-10-PCS; 2022-02-11)
DX: K61.2 Anorectal abscess (principal); K52.89 Other specified noninfective gastroenteritis and colitis; Z20.822 Contact with and (suspected) exposure to COVID-19; K59.00 Constipation, unspecified; K57.30 Diverticulosis of large intestine without perforation or abscess without bleeding; E87.6 Hypokalemia; Z88.8 Allergy status to other drugs, medicaments and biological substances
CPT/HCPCS: 96374; 99285; Z7506; 36415; 72193; 74177; 80053; 83605; 83735; 84100; 84145; 85007; 85025; 87040; 87081; 87324; 87449; 87811; 93005; A4618; A6253; A6258; A6446; A7000; G0378; J0131; J1100; J1644; J2175; J2250; J2270; J2405; J2543; J2704; J3010; J3370; J3490; J7030; J7120; Q9963; Q9967

== ENCOUNTER 2022-04-12 20:26 | Emergency (ER) | payer BC ==
[~2022-04-12] VITALS: Ht 177.8 cm; Wt 68.4 kg
[~2022-04-12 20:26] MED LIST: ACET-2119 PO
[2022-04-13 02:38] LABS: BASOPHILS % (AUTO) 0.5 % (0-1); EOSINOPHILS # (AUTO) 0.1 X10'3 (0-0.9); EOSINOPHILS % (AUTO) 1.3 % (0-6); HEMATOCRIT 43.4 % (42.0-52.0); HEMOGLOBIN 14.3 g/dl (14.0-17.9); LYMPHOCYTES # (AUTO) 1.9 X10'3 (1.1-4.8); LYMPHOCYTES % (AUTO) 19.7 % (21-51); MEAN CORPUSCULAR HGB CONC 32.9 g/dL (33.0-36.5); MEAN CORPUSCULAR VOLUME 91.3 FL (78-98); MEAN PLATELET VOLUME 6.6 FL (7.4-10.4); MONOCYTES # (AUTO) 0.9 X10'3 (0-0.9); MONOCYTES % (AUTO) 9.2 % (2-12); NEUTROPHILS # (AUTO) 6.5 X10'3 (1.8-7.7); NEUTROPHILS % (AUTO) 69.3 % (42-75); PLATELET COUNT 353 X10'3 (140-440); RED BLOOD COUNT 4.76 X10'6 (4.70-6.10); RED CELL DISTRIBUTION WIDTH 14.2 % (11.5-14.5); WHITE BLOOD COUNT 9.4 X10'3 (4.5-11.0)
[2022-04-13 02:51] LABS: ALANINE AMINOTRANSFERASE 32 U/L (12-78); ALBUMIN/GLOBULIN RATIO 1.1 (1.1-1.5); ALKALINE PHOSPHATASE 88 IU/L (46-116); ANION GAP 7 (8-16); ASPARTATE AMINO TRANSFERASE 15 U/L (10-37); BILIRUBIN,TOTAL 0.3 MG/DL (0.1-1.0); BLOOD UREA NITROGEN 10 MG/DL (7-18); BUN/CREATININE RATIO 10.1 (5.4-32.0); CALCIUM 9.8 MG/DL (8.5-10.1); CHLORIDE 103 MMOL/L (99-107); CREATININE 0.99 MG/DL (0.60-1.10); GLUCOSE 108 MG/DL (70-104); SODIUM 140 MMOL/L (135-145); TOTAL PROTEIN 7.7 G/DL (6.4-8.2); eGFR 79 ML/MIN
[2022-04-13 02:54] LABS: LIPASE 226 U/L (73-393); MAGNESIUM 2.3 MG/DL (1.5-2.4)
[2022-04-13 03:49] VITALS: BP 132/79
== END 2022-04-13 04:07 | disposition home or self-care (01) ==
LOC: ER 20:26
DX: R53.83 Other fatigue (principal); Z20.822 Contact with and (suspected) exposure to COVID-19; R61 Generalized hyperhidrosis; Z79.899 Other long term (current) drug therapy; Z79.1 Long term (current) use of non-steroidal anti-inflammatories (NSAID); Z79.2 Long term (current) use of antibiotics
CPT/HCPCS: 36415; 80053; 83605; 83690; 83735; 84484; 85025; 87502; 87503; 87635; 93005; 99284; C9803

== ENCOUNTER 2022-08-26 09:52 | Inpatient (IN) | payer BC ==
[2022-08-22 15:19] LABS: BASOPHILS # (AUTO) 0.1 X10'3 (0-0.2); EOSINOPHILS # (AUTO) 0.2 X10'3 (0-0.9); EOSINOPHILS % (AUTO) 2.4 % (0-6); LYMPHOCYTES # (AUTO) 2.1 X10'3 (1.1-4.8); LYMPHOCYTES % (AUTO) 27.9 % (21-51); MEAN CORPUSCULAR HEMOGLOBIN 31.1 PG (27.0-31.0); MEAN CORPUSCULAR HGB CONC 33.5 g/dL (33.0-36.5); MEAN CORPUSCULAR VOLUME 92.8 FL (78-98); MEAN PLATELET VOLUME 7.1 FL (7.4-10.4); MONOCYTES # (AUTO) 0.8 X10'3 (0-0.9); MONOCYTES % (AUTO) 10.1 % (2-12); NEUTROPHILS # (AUTO) 4.5 X10'3 (1.8-7.7); NEUTROPHILS % (AUTO) 58.6 % (42-75); PRE OP HEMATOCRIT 48.5 % (42.0-52.0); PRE OP HEMOGLOBIN 16.2 g/dL (14.0-17.9); PRE OP PLATELET COUNT 305 X10'3 (140-440); RED BLOOD COUNT 5.22 X10'6 (4.70-6.10); RED CELL DISTRIBUTION WIDTH 13.9 % (11.5-14.5)
[2022-08-22 15:24] LABS: PRE OP INR 1.1 INR; PRE OP PROTIME 11.6 SECONDS (9.0-12.0)
[2022-08-22 15:35] LABS: ALKALINE PHOSPHATASE 83 IU/L (46-116); BLOOD UREA NITROGEN 20 MG/DL (7-18); BUN/CREATININE RATIO 16.5 (10.0-20.0); CALCIUM 9.2 MG/DL (8.5-10.1); CHLORIDE 105 MMOL/L (99-107); CREATININE 1.21 MG/DL (0.60-1.10); PRE OP ALT 29 U/L (30-65); PRE OP ANION GAP 9 (8-16); PRE OP AST 18 U/L (10-37); PRE OP BILIRUB, TOTAL 0.4 MG/DL (0.0-1.0); PRE OP GLUCOSE 106 MG/DL (70-104); PRE OP POTASSIUM 4.8 MMOL/L (3.4-5.1); PRE OP SODIUM 142 MMOL/L (135-145); TOTAL CARBON DIOXIDE 28.1 MMOL/L (24-32); TOTAL PROTEIN 7.9 G/DL (6.4-8.2); eGFR 62 ML/MIN
[~2022-08-26] VITALS: Ht 175.3 cm; Wt 75.0 kg
[2022-08-26] VITALS (20 sets, daily range): BP systolic 100–129; BP diastolic 63–84
[~2022-08-26 09:52] MED LIST changes: -ACET-2119 PO; +ADAL80PE SQ; +LORA-269 PO; +MIRT-88 PO; +TEST1.257 TOP; +ceFOXitin 2GM-NS 100mL ADDvant 100 ML IV ONE; +famotidine 20mg tablet PO ONE; +heparin, porcine 5000 units/ml vial SQ ONE; +metroNIDAZOLE-Flagyl 500mg/NS 100ML IVPB IV ONE; +ringers solution, lacted 1,000 ML IV SCH
[2022-08-26] MEDS ORDERED: LIDOcaine 1% W/epiNEPHrine 1:100,000 20ml vial ONE (14:05)
[2022-08-26] MEDS ORDERED: tobramycin 40mg/ml inj ONE (14:05)
[2022-08-26] MEDS ORDERED: BUPIVAcaine/PF 2.5 mg/ml (0.25%) 30ml vial ONE (14:05)
[2022-08-26] MEDS ORDERED: tobramycin 40mg/ml inj INH ONE (14:30)
[2022-08-26] MEDS ORDERED: BUPIVAcaine 0.5% inj/PF 30 ml vial IJ ONE (14:30)
[2022-08-26] MEDS ORDERED: LIDOcaine 1% W/epiNEPHrine 1:100,000 20ml vial IJ ONE (14:30)
[2022-08-26] MEDS ORDERED: fentaNYL /PF 50mcg/ml 5ml ampule ONE (14:33)
[2022-08-26] MEDS ORDERED: midazolam 1 mg/ML 2ml injection ONE (14:33)
[2022-08-26] MEDS ORDERED: rocuronium 10mg/ml inj IV ONE (14:34)
[2022-08-26] MEDS ORDERED: propofol inj 20 ML IV ONE (14:34)
[2022-08-26] MEDS ORDERED: sevoflurane 250ml liquid IH ONE (14:38)
[2022-08-26] MEDS ORDERED: ondansetron/PF 4mg/2ml inj IV PRN ×2 (14:40→16:30)
[2022-08-26] MEDS ORDERED: meperidine/PF 25mg/ml syringe IV PRN ×3 (14:40)
[2022-08-26] MEDS ORDERED: morphine 2 MG/ML inj. syringe IV PRN (14:40)
[2022-08-26] MEDS ORDERED: proCHLORperazine 10 MG/2 ml inj IV PRN (14:40)
[2022-08-26] MEDS ORDERED: ringers solution, lacted 1,000 ML IV SCH (14:40)
[2022-08-26] MEDS ORDERED: morphine 4 MG/ML inj SYRINge IV PRN (14:40)
[2022-08-26] MEDS ORDERED: dexamethasone sod phosphate 4mg/ml inj. ONE (15:47)
[2022-08-26] MEDS ORDERED: ondansetron/PF 4mg/2ml inj ONE (15:47)
[2022-08-26] MEDS ORDERED: acetaminophen 1,000mg/100ml IV 100 ML IV ONE (15:47)
[2022-08-26] MEDS ORDERED: sugammadex 200mg/2ml injection IV ONE (15:47)
--- NOTE | 2022-08-26 16:25 | NUR ---
Received from OR via HOSPITAL BED, accompanied by Anesthesiologist and report given by HARPER Anesthesiologist. PATIENT WAKING UP, DENIES PAIN, V/S WNL, SCD ON , PIV 20G LEFT FOREARM, GAUZE C/D/I TO ABDOMEN. Addendum: 08/26/22 at 1645 by Adalberto Reese RN Amended: Links added.
[2022-08-26] MEDS ORDERED: normal saline 1000ml 1,000 ML IV SCH (16:30)
[2022-08-26] MEDS ORDERED: naloxone 0.4 mg/ml inj IV PRN (16:30)
[2022-08-26] MEDS ORDERED: LORazepam 2 mg/ml vial IV PRN (16:35)
[2022-08-26] MEDS ORDERED: TEST75GE TD (16:55)
[2022-08-26] MEDS ORDERED: HYDROmorph/NS 0.2 mg/ml PCA 100 ML IV SCH (17:00)
[2022-08-26] MEDS: HYDROmorph/NS 0.2 mg/ml PCA 100 ML IV SCH ×4 (17:18→23:00)
--- NOTE | 2022-08-26 17:33 | NUR ---
Patient in room [facility] 4018. I have received report from KANG HAWKINS FROM [facility] and had the opportunity to ask questions and assume patient care.
--- NOTE | 2022-08-26 17:45 | NUR ---
ALL DISCHARGE CRITERIA HAS BEEN MET. VSS, PAIN AT A TOLERABLE LEVEL, ABLE TO SAFELY AMBULATE AND TRANSFER SELF. IV TAKEN OUT WITHOUT ANY COMPLICATIONS. ALL DISCHARGE INSTRUCTIONS COVERED WITH PATIENT AND ALL QUESTIONS ANSWERED. PATIENT TAKEN OUT VIA WHEELCHAIR WITH ALL BELONGINGS TO PERSONAL VEHICLE WHERE FAMILY DROVE PATIENT HOME. Addendum: 08/26/22 at 1756 by Adalberto Reese RN Amended: Links added.
--- NOTE | 2022-08-26 18:46 | NUR ---
Problems reprioritized. Patient report given, questions answered & plan of care reviewed with KANG PENN.
[2022-08-26] MEDS: docusate sod 100mg capsule PO SCH (21:03)
[2022-08-26] MEDS: heparin, porcine 5000 units/ml vial SQ SCH (21:03)
[2022-08-26] MEDS: mirtazapine 15mg tablet PO SCH (21:04)
[2022-08-27] MEDS: metroNIDAZOLE-Flagyl 500mg/NS 100 ML IV SCH ×3 (00:16→17:38)
[2022-08-27] MEDS: HYDROmorph/NS 0.2 mg/ml PCA 100 ML IV SCH ×12 (01:00→23:00)
[2022-08-27] MEDS: ceFOXitin inj 1,000 MG in normal saline 100ml IV soln 100 ML IV SCH ×2 (01:40→09:15)
[2022-08-27 02:00] VITALS: BP 118/68
[2022-08-27] MEDS: potassium CL 20mEq in D5-1/2NS 1,000 ML IV SCH ×2 (02:51→05:50)
[2022-08-27 06:19] LABS: BASOPHILS # (AUTO) 0.1 X10'3 (0-0.2); BASOPHILS % (AUTO) 0.4 % (0-1); EOSINOPHILS % (AUTO) 0 % (0-6); HEMATOCRIT 46.4 % (42.0-52.0); HEMOGLOBIN 15.3 g/dl (14.0-17.9); LYMPHOCYTES # (AUTO) 1.9 X10'3 (1.1-4.8); MEAN CORPUSCULAR HEMOGLOBIN 31.1 PG (27.0-31.0); MEAN CORPUSCULAR HGB CONC 33.1 g/dL (33.0-36.5); MONOCYTES # (AUTO) 1.2 X10'3 (0-0.9); MONOCYTES % (AUTO) 8.4 % (2-12); NEUTROPHILS # (AUTO) 11.2 X10'3 (1.8-7.7); NEUTROPHILS % (AUTO) 78.2 % (42-75); PLATELET COUNT 289 X10'3 (140-440); RED BLOOD COUNT 4.93 X10'6 (4.70-6.10); WHITE BLOOD COUNT 14.4 X10'3 (4.5-11.0)
[2022-08-27 06:37] LABS: ALBUMIN 3.5 G/DL (3.4-5.0); ANION GAP 7 (8-16); BLOOD UREA NITROGEN 9 MG/DL (7-18); BUN/CREATININE RATIO 6.6 (10.0-20.0); CALCIUM 8.5 MG/DL (8.5-10.1); CHLORIDE 103 MMOL/L (99-107); CREATININE 1.36 MG/DL (0.60-1.10); GLUCOSE 117 MG/DL (70-104); SODIUM 139 MMOL/L (135-145); TOTAL CARBON DIOXIDE 29.4 MMOL/L (24-32); eGFR 55 ML/MIN
--- NOTE | 2022-08-27 06:52 | NUR ---
Problems reprioritized. Patient report given, questions answered & plan of care reviewed with KANG SHELTON.
[2022-08-27 07:19] VITALS: BP 130/64
[2022-08-27] MEDS: TESTOSTERONE TOP SCH ×2 (08:00→14:32)
[2022-08-27] MEDS: docusate sod 100mg capsule PO SCH ×2 (08:07→21:03)
[2022-08-27] MEDS: heparin, porcine 5000 units/ml vial SQ SCH ×2 (08:08→21:02)
[2022-08-27 12:03] VITALS: BP 127/85
[2022-08-27 18:00] VITALS: BP 127/92
--- NOTE | 2022-08-27 18:23 | NUR ---
Report given to MELINDA KAPADIA.
[2022-08-27] MEDS: mirtazapine 15mg tablet PO SCH (21:03)
[2022-08-27 22:00] VITALS: BP 123/81
[2022-08-28] MEDS: HYDROmorph/NS 0.2 mg/ml PCA 100 ML IV SCH ×3 (01:00→05:00)
[2022-08-28 06:00] VITALS: BP 121/81
--- NOTE | 2022-08-28 06:31 | NUR ---
Problems reprioritized. Patient report given, questions answered & plan of care reviewed with KANG OSUNA.
[2022-08-28 07:06] LABS: BASOPHILS # (AUTO) 0.1 X10'3 (0-0.2); BASOPHILS % (AUTO) 0.4 % (0-1); EOSINOPHILS % (AUTO) 0.2 % (0-6); HEMATOCRIT 45.8 % (42.0-52.0); HEMOGLOBIN 15.5 g/dl (14.0-17.9); LYMPHOCYTES # (AUTO) 2.2 X10'3 (1.1-4.8); LYMPHOCYTES % (AUTO) 12.3 % (21-51); MEAN CORPUSCULAR HEMOGLOBIN 31.7 PG (27.0-31.0); MEAN CORPUSCULAR HGB CONC 33.8 g/dL (33.0-36.5); MEAN CORPUSCULAR VOLUME 93.6 FL (78-98); MEAN PLATELET VOLUME 7.3 FL (7.4-10.4); MONOCYTES # (AUTO) 2.2 X10'3 (0-0.9); MONOCYTES % (AUTO) 12.3 % (2-12); NEUTROPHILS # (AUTO) 13.1 X10'3 (1.8-7.7); NEUTROPHILS % (AUTO) 74.8 % (42-75); PLATELET COUNT 305 X10'3 (140-440); RED CELL DISTRIBUTION WIDTH 13.9 % (11.5-14.5); WHITE BLOOD COUNT 17.6 X10'3 (4.5-11.0)
--- NOTE | 2022-08-28 07:23 | NUR ---
Surgeon rounded on pt. Has seen incision. See new orders. If pt. continues to improve, possible DC tomorrow.
[2022-08-28 07:26] LABS: ALBUMIN 3.7 G/DL (3.4-5.0); ANION GAP 10 (8-16); BLOOD UREA NITROGEN 8 MG/DL (7-18); BUN/CREATININE RATIO 6.3 (10.0-20.0); CALCIUM 9.2 MG/DL (8.5-10.1); CHLORIDE 100 MMOL/L (99-107); CREATININE 1.28 MG/DL (0.60-1.10); GLUCOSE 117 MG/DL (70-104); POTASSIUM 3.8 MMOL/L (3.5-5.1); SODIUM 137 MMOL/L (135-145); TOTAL CARBON DIOXIDE 27.1 MMOL/L (24-32); eGFR 59 ML/MIN
[2022-08-28 07:31] LABS: TOTAL CELLS COUNTED 100
[2022-08-28 07:33] LABS: PLATELET ESTIMATE NORMAL
[2022-08-28] MEDS: docusate sod 100mg capsule PO SCH ×2 (08:00→20:00)
[2022-08-28] MEDS: TESTOSTERONE TOP SCH (08:00)
[2022-08-28] MEDS: LORazepam 1 MG tablet PO PRN (08:59)
[2022-08-28 10:00] VITALS: BP 120/76
[2022-08-28] MEDS: heparin, porcine 5000 units/ml vial SQ SCH ×2 (10:06→20:34)
[2022-08-28] MEDS: HYDROcodone/acetaminophen 5mg/325mg tablet PO PRN ×3 (10:24→20:43)
[2022-08-28] MEDS: calcium carbonate 500mg chew tablet PO PRN (10:24)
[2022-08-28] MEDS ORDERED: PCA WASTE DOCUMENTATION 1 MG ML MC SCH (10:45)
[2022-08-28 18:00] VITALS: BP 117/78
--- NOTE | 2022-08-28 18:00 | NUR ---
Patient in room [facility]TH[facility] 4018. I have received report from America KAPADIA and had the opportunity to ask questions and assume patient care.
[2022-08-28] MEDS: JUVEN Smoothie Arginine/Glut./Ca2+Bmb (Juven 19.3pkt) 240ml cup PO SCH (18:35)
[2022-08-28] MEDS: mirtazapine 15mg tablet PO SCH (20:33)
[2022-08-28 22:00] VITALS: BP 127/81
[2022-08-29] MEDS: calcium carbonate 500mg chew tablet PO PRN (01:22)
[2022-08-29] MEDS: HYDROcodone/acetaminophen 5mg/325mg tablet PO PRN ×4 (03:38→20:26)
[2022-08-29 05:58] LABS: BASOPHILS % (AUTO) 0.3 % (0-1); EOSINOPHILS # (AUTO) 0.1 X10'3 (0-0.9); EOSINOPHILS % (AUTO) 0.7 % (0-6); HEMATOCRIT 44.4 % (42.0-52.0); HEMOGLOBIN 14.8 g/dl (14.0-17.9); LYMPHOCYTES # (AUTO) 1.8 X10'3 (1.1-4.8); LYMPHOCYTES % (AUTO) 11.1 % (21-51); MEAN CORPUSCULAR HEMOGLOBIN 30.9 PG (27.0-31.0); MEAN CORPUSCULAR HGB CONC 33.2 g/dL (33.0-36.5); MEAN CORPUSCULAR VOLUME 93.2 FL (78-98); MEAN PLATELET VOLUME 7.2 FL (7.4-10.4); MONOCYTES # (AUTO) 1.7 X10'3 (0-0.9); MONOCYTES % (AUTO) 10.2 % (2-12); NEUTROPHILS # (AUTO) 12.8 X10'3 (1.8-7.7); NEUTROPHILS % (AUTO) 77.7 % (42-75); PLATELET COUNT 257 X10'3 (140-440); RED BLOOD COUNT 4.77 X10'6 (4.70-6.10); RED CELL DISTRIBUTION WIDTH 13.7 % (11.5-14.5); WHITE BLOOD COUNT 16.4 X10'3 (4.5-11.0)
[2022-08-29 06:00] VITALS: BP 123/89
[2022-08-29 06:01] LABS: ALBUMIN 3.2 G/DL (3.4-5.0); ANION GAP 8 (8-16); BLOOD UREA NITROGEN 7 MG/DL (7-18); BUN/CREATININE RATIO 6.7 (10.0-20.0); C-REACTIVE PROTEIN 15.85 MG/DL (0.0-0.5); CALCIUM 9.2 MG/DL (8.5-10.1); CHLORIDE 101 MMOL/L (99-107); CREATININE 1.05 MG/DL (0.60-1.10); GLUCOSE 104 MG/DL (70-104); POTASSIUM 3.5 MMOL/L (3.5-5.1); SODIUM 137 MMOL/L (135-145); TOTAL CARBON DIOXIDE 27.9 MMOL/L (24-32); eGFR 74 ML/MIN
[2022-08-29] MEDS: docusate sod 100mg capsule PO SCH ×2 (08:00→20:00)
[2022-08-29] MEDS: JUVEN Smoothie Arginine/Glut./Ca2+Bmb (Juven 19.3pkt) 240ml cup PO SCH ×3 (08:06→18:12)
[2022-08-29] MEDS: heparin, porcine 5000 units/ml vial SQ SCH ×2 (08:26→20:25)
[2022-08-29] MEDS: TESTOSTERONE TOP SCH (08:51)
[2022-08-29 10:00] VITALS: BP 131/77
[2022-08-29] MEDS ORDERED: pantoprazole 40mg IV 80 MG in normal saline 100ml IV soln 100 ML IV SCH (10:50)
[2022-08-29] MEDS: pantoprazole 40MG/NS 100ML BAG 100 ML IV SCH ×2 (12:11→20:24)
--- NOTE | 2022-08-29 14:44 | NUR ---
Patient in room [facility] 4018. I have received report from binta ring and had the opportunity to ask questions and assume patient care.
[2022-08-29 15:00] LABS: C DIFFICILE TOXINS A&B NEGATIVE (Neg)
[2022-08-29 15:01] LABS: C DIFF SPECIMEN=DIARRHEA? ACCEPTABLE
--- NOTE | 2022-08-29 16:00 | NUR ---
I have reviewed and agree with all interventions, assessments performed and documented by binta ring.
[2022-08-29 18:00] VITALS: BP 111/81
--- NOTE | 2022-08-29 18:00 | NUR ---
Patient in room [facility]TH[facility] 4018. I have received report from Izaiah KAPADIA and had the opportunity to ask questions and assume patient care.
--- NOTE | 2022-08-29 18:13 | NUR ---
Problems reprioritized. Patient report given, questions answered & plan of care reviewed with guera ring.
[2022-08-29] MEDS: mirtazapine 15mg tablet PO SCH (20:26)
[2022-08-29 22:00] VITALS: BP 120/80
[2022-08-29] MEDS: pantoprazole 40mg Tablet.DR PO SCH (22:10)
[2022-08-29] MEDS: LORazepam 1 MG tablet PO PRN (22:12)
[2022-08-30 06:00] VITALS: BP 126/81
--- NOTE | 2022-08-30 06:14 | NUR ---
Problems reprioritized. Patient report given, questions answered & plan of care reviewed with Belem KAPADIA.
[2022-08-30 07:35] LABS: BASOPHILS # (AUTO) 0.1 X10'3 (0-0.2); BASOPHILS % (AUTO) 0.4 % (0-1); EOSINOPHILS # (AUTO) 0.3 X10'3 (0-0.9); EOSINOPHILS % (AUTO) 2.7 % (0-6); HEMATOCRIT 43.1 % (42.0-52.0); HEMOGLOBIN 14.3 g/dl (14.0-17.9); LYMPHOCYTES # (AUTO) 2.1 X10'3 (1.1-4.8); LYMPHOCYTES % (AUTO) 18.1 % (21-51); MEAN CORPUSCULAR HEMOGLOBIN 31.1 PG (27.0-31.0); MEAN CORPUSCULAR HGB CONC 33.1 g/dL (33.0-36.5); MEAN CORPUSCULAR VOLUME 93.8 FL (78-98); MEAN PLATELET VOLUME 7.7 FL (7.4-10.4); MONOCYTES # (AUTO) 1.2 X10'3 (0-0.9); MONOCYTES % (AUTO) 10.4 % (2-12); NEUTROPHILS # (AUTO) 7.8 X10'3 (1.8-7.7); NEUTROPHILS % (AUTO) 68.4 % (42-75); PLATELET COUNT 258 X10'3 (140-440); RED BLOOD COUNT 4.59 X10'6 (4.70-6.10); RED CELL DISTRIBUTION WIDTH 13.8 % (11.5-14.5); WHITE BLOOD COUNT 11.5 X10'3 (4.5-11.0)
[2022-08-30 07:54] LABS: ALBUMIN 2.8 G/DL (3.4-5.0); ANION GAP 7 (8-16); BLOOD UREA NITROGEN 12 MG/DL (7-18); BUN/CREATININE RATIO 9.5 (10.0-20.0); CALCIUM 8.9 MG/DL (8.5-10.1); CHLORIDE 101 MMOL/L (99-107); CREATININE 1.26 MG/DL (0.60-1.10); GLUCOSE 84 MG/DL (70-104); POTASSIUM 3.7 MMOL/L (3.5-5.1); SODIUM 140 MMOL/L (135-145); eGFR 60 ML/MIN
[2022-08-30] MEDS: docusate sod 100mg capsule PO SCH (08:00)
[2022-08-30] MEDS: pantoprazole 40mg Tablet.DR PO SCH (08:00)
[2022-08-30] MEDS: heparin, porcine 5000 units/ml vial SQ SCH (08:00)
[2022-08-30] MEDS: JUVEN Smoothie Arginine/Glut./Ca2+Bmb (Juven 19.3pkt) 240ml cup PO SCH ×2 (08:26→13:02)
[2022-08-30] MEDS: TESTOSTERONE TOP SCH (09:20)
[2022-08-30] MEDS: HYDROcodone/acetaminophen 5mg/325mg tablet PO PRN ×2 (09:43→17:49)
[2022-08-30 10:00] VITALS: BP 118/74
--- NOTE | 2022-08-30 18:21 | NUR ---
Patient discharged in stable condition to home with . pt educated on discharge instructions. belongings sent with patient all questions answered.
== END 2022-08-30 17:55 | disposition home or self-care (01) | DRG 330 ==
LOC: PAS IN 09:52 → ORTHO 4S 17:50
PROVIDERS: ADMIT Colon & Rectal Surgery; ATTEND Colon & Rectal Surgery
PROC: 0DBB0ZZ Excision of Ileum, Open Approach (ICD-10-PCS; principal; 2022-08-26 14:38)
DX: Z43.2 Encounter for attention to ileostomy (principal); K51.90 Ulcerative colitis, unspecified, without complications; K61.1 Rectal abscess; Z79.899 Other long term (current) drug therapy
CPT/HCPCS: Z7506; Z7508; 36415; 80048; 80053; 82948; 85007; 85025; 85610; 85730; 86140; 86885; 86900; 86901; 86922; 87081; 87324; 87449; 93970; 94668; A4615; A4618; A7000; C9113; G0378; J0131; J0694; J1100; J1170; J1644; J2175; J2250; J2270; J2405; J2704; J3010; J3260; J3480; J3490; J7030; J7120; S0020

== ENCOUNTER → 2023-09-03 | Outpatient (CLI) | payer BC ==
[~2023-09-03] MED LIST changes: -TEST1.257 TOP; +TEST75GE TD; -ceFOXitin 2GM-NS 100mL ADDvant 100 ML IV ONE; -famotidine 20mg tablet PO ONE; -heparin, porcine 5000 units/ml vial SQ ONE; +iohexol 300mg/ml 100ml inj. ONE; -metroNIDAZOLE-Flagyl 500mg/NS 100ML IVPB IV ONE; -ringers solution, lacted 1,000 ML IV SCH
== END | disposition home or self-care (01) ==
LOC: RAD 13:59
PROVIDERS: ATTEND Surgery
DX: K40.90 Unilateral inguinal hernia, without obstruction or gangrene, not specified as recurrent (principal)
CPT/HCPCS: 72193; Q9967